=== PATIENT | female | born 1970 | race Caucasian/White ===

== ENCOUNTER → 2018-12-19 | Outpatient (CLI) | payer OTHER ==
[~2018-12-19] MED LIST: CLEOCIN HCL300 MG PO
== END ==
LOC: M.RAD 14:55
DX: C84.70 Anaplastic large cell lymphoma, ALK-negative, unspecified site (principal); N63.10 Unspecified lump in the right breast, unspecified quadrant; N63.20 Unspecified lump in the left breast, unspecified quadrant

== ENCOUNTER → 2019-06-04 | Outpatient (CLI) | payer OTHER | LOC: M.ULTRA 12:51 | DX: M79.631 Pain in right forearm (principal); M79.89 Other specified soft tissue disorders ==

== ENCOUNTER → 2019-06-12 | Outpatient (CLI) | payer OTHER | LOC: M.CT 13:00 | DX: J84.10 Pulmonary fibrosis, unspecified (principal); C84.70 Anaplastic large cell lymphoma, ALK-negative, unspecified site; J98.4 Other disorders of lung; M25.78 Osteophyte, vertebrae ==